=== PATIENT | male | born 1970 | race African-American/Black ===

== ENCOUNTER 2021-05-08 23:54 | Emergency (ER) | payer OTHER, SELFPAY ==
[2021-05-09 00:05] VITALS: BP 166/101; PULSE 76; RESP 16; O2SAT 99; BMI 29.2
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
== END 2021-05-09 00:58 | disposition home or self-care (01) ==
LOC: HO.ED 05-09 00:51
PROVIDERS: Emergency Provider Emergency Medicine
DX: S46.002A Unspecified injury of muscle(s) and tendon(s) of the rotator cuff of left shoulder, initial encounter (principal); X58.XXXA Exposure to other specified factors, initial encounter; Y93.9 Activity, unspecified; Y92.9 Unspecified place or not applicable; Y99.0 Civilian activity done for income or pay
CPT/HCPCS: 99283; 99284